=== PATIENT | female | born 1960 | race African-American/Black ===

== ENCOUNTER 2017-12-22 05:35 | Day surgery (SDC) | payer BC ==
[~2017-12-22 05:35] MED LIST: AUGMENTIN875TAB OR; AUGMENTIN875TAB PO; BETIMOL0.51 OU; CIPRO500 MG OR; DEPO-MEDROL80 MG/ML IM; DIFLUCAN150 MG OR; FLONASE NASAL50 MCG; GERITOL COMPLETE PO; HYDROXYZ HCL25 MG PO; LIPITOR20 M1 PO; MEDDOSEPAK OR; MEDDOSEPAK PO; MUCINEX600 MG PO; MULTIVITAL-M OR; OSCAL 500/1 TAB PO; SM ASPIRIN ADUL81 MG PO; SOLU-MEDROL125 MG IM; VITAMIN B-121000 MCG PO; XALATAN0.005 % OU; ZOVIRAX5 % EX; [UNRECOGNIZED DRUG - REMARK] OU; no homemeds
[2017-12-22 08:16] VITALS: BP 118/62
== END 2017-12-22 08:05 | disposition home or self-care (01) | DRG 951 ==
LOC: ENDO 05:35
PROVIDERS: ATTEND Surgery
PROC: 0DJD8ZZ Inspection of Lower Intestinal Tract, Via Natural or Artificial Opening Endoscopic (ICD-10-PCS; principal; 2017-12-22)
DX: Z12.11 Encounter for screening for malignant neoplasm of colon (principal)